=== PATIENT | male | born 1945 | race Caucasian/White ===

== ENCOUNTER → 2017-03-19 | Outpatient (CLI) | payer MEDICARE ==
[~2017-03-19] MED LIST: CEPH500C PO; OXYC-109 PO
--- NOTE | 2017-03-19 12:24 | Diagnostic Imaging Report ---
Left breast ultrasound. INDICATION: Pain and lump in the left retroareolar region. FINDINGS: The four quadrants and retroareolar region of the left breast is evaluated with comparison with the right breast. There is hypoechoic lesion seen in the retroareolar region on the left side. This may relate to gynecomastia. There is internal vascularity seen. The area of abnormality is 3.0 x 0.8 x 2.3 cm. No other abnormality seen. IMPRESSION: A 3-cm retroareolar hypoechoic lesion in the left breast is favored to be related to gynecomastia. Correlate clinically. If symptoms persist or worsen, then followup ultrasound and evaluation with mammography is recommended. ACR BI-RADS Category 3: Probably benign findings. Result letter will be mailed to the patient. Note: At least 10% of breast cancer is not imaged by mammography. Dictated by: Dictated on workstation # [id number]
== END ==
LOC: RAD 08:39
PROVIDERS: ATTEND Nurse Practitioner Family
DX: N64.4 Mastodynia (principal)
CPT/HCPCS: 76641

== ENCOUNTER → 2018-09-24 | Outpatient (CLI) | payer MEDICARE ==
[2018-09-24 14:08] LABS: CREATINE KINASE MB 1.1 NG/ML (<6.6); MYOGLOBIN SERUM 39.9 NG/ML (10.0-92.0)
== END ==
LOC: CARD 13:25
PROVIDERS: ATTEND Family Medicine
DX: R07.89 Other chest pain (principal)
CPT/HCPCS: 36415; 82553; 83874; 84484; 93005

== ENCOUNTER → 2018-09-26 | Outpatient (CLI) | payer MEDICARE ==
[~2018-09-26] VITALS: Ht 167.6 cm; Wt 69.9 kg
[~2018-09-26] MED LIST changes: +CATHETER FLUSH 10 ML SYR IV PRN
== END ==
LOC: CARD 07:19
PROVIDERS: ATTEND Internal Medicine Cardiovascular Disease
DX: R07.89 Other chest pain (principal)
CPT/HCPCS: 78452; 93017

== ENCOUNTER 2020-04-14 10:49 | Outpatient (CLI) | payer MEDICARE ==
[~2020-04-14] VITALS: Ht 167 cm; Wt 68.1 kg
[~2020-04-14 10:49] MED LIST changes: -CATHETER FLUSH 10 ML SYR IV PRN
[2020-04-14] MEDS ORDERED: AMIT10TA6 PO (13:37)
== END 2020-04-14 13:41 ==
LOC: PREOP 10:49
PROVIDERS: ATTEND Surgery
DX: Z01.818 Encounter for other preprocedural examination (principal)

== ENCOUNTER 2020-04-20 09:01 | Day surgery (SDC) | payer MEDICARE ==
[2020-04-20] VITALS (15 sets, daily range): BP systolic 86–169; BP diastolic 53–84
[~2020-04-20] VITALS: Ht 167 cm; Wt 68.1 kg
[~2020-04-20 09:01] MED LIST changes: +AMIT10TA6 PO
[2020-04-20] MEDS ORDERED: NS IV 500 ML 500 ML ONE (09:13)
[2020-04-20] MEDS ORDERED: NS IV 500 ML 500 ML IV PRN (09:13)
[2020-04-20] MEDS ORDERED: fentaNYL INJECTION 100 MCG/2 ML AMP IVP ONE (09:15)
[2020-04-20] MEDS ORDERED: LIDOCAINE JELLY 2% 6 ML SYRINGE MM PRN (09:15)
--- NOTE | 2020-04-20 09:42 | Conscious Sedation/ASA ---
Conscious Sedation Pre-Proced Time 09:30 ASA Score 2 For ASA 3 and 4: Consider anesthesia and medical clearance. Also, for patients with a history of failed moderate sedation consider anesthesia. Airway Lungs Heart ASA score ASA 1: a normal healthy patient ASA 2: a patient with a mild systemic disease (mid diabetes, controlled hypertension, obesity ASA 3: a patient with a severe systemic disease that limits activity (angina, COPD, prior Myocardial infarction) ASA 4: a patient with an incapacitating disease that is a constant threat to life (CHF, renal failure) ASA 5: a moribund patient not expected to survive 24 hrs. (ruptured aneurysm) ASA 6: a declared brain- patient whose organs are being harvested. For emergent operations, add the letter E after the classification Mallampati Classification Grade 2 Sedation Plan Analgesia, Amnesia, Plan communicated to team members, Discussed options with patient/fam, Discussed risks with patient/fam The patient is an appropriate candidate to undergo the planned procedure, sedation, and anesthesia. The patient immediately re-assessed prior to indication. SHOAIB STRAUSS MD Apr 20, 2020 09:42
--- NOTE | 2020-04-20 09:43 | Progress Note-Pre Operative ---
Pre-Operative Progress Note H&P Reviewed The H&P was reviewed, patient examined and no changes noted. Date Seen by Provider: Apr 20, 2020 Time Seen by Provider: : Date H&P Reviewed: Apr 20, 2020 Time H&P Reviewed: :30 Pre-Operative Diagnosis: screening colonoscopy SHOAIB STRAUSS MD Apr 20, 2020 09:43
[2020-04-20] MEDS ORDERED: ACETAMINOPHEN 325 MG TABLET PO PRN (09:45)
[2020-04-20] MEDS ORDERED: HYDROcodone/APAP 5 MG/325 MG (LORTAB) TAB PO PRN (09:45)
[2020-04-20] MEDS ORDERED: ONDANSETRON 4 MG/2 ML (SDV) Z0FRAN IVP PRN (09:45)
[2020-04-20] MEDS ORDERED: morphine INJ 10 MG/ML 1ML (SYR OR VIAL) IVP PRN ×2 (09:45)
--- NOTE | 2020-04-20 09:45 | Discharge Inst-Surgical ---
D/C Lap Instructions-RICA Follow Up Activity as tolerated High Fiber Diet 25g or more per day Avoid Alcohol, Caffeine, Spicy [place] and Acid foods. Drink 64 fluid oz or more of fluids per day. Symptoms to Report: Fever over 101 degree F, Nausea/Vomiting If any problems/questions: Contact your physician or go to Emergency Room SHOAIB STRAUSS MD Apr 20, 2020 09:44
[2020-04-20] MEDS ORDERED: fentaNYL INJECTION 100 MCG/2 ML AMP ONE (09:47)
[2020-04-20] MEDS ORDERED: MIDAZOLAM 5 MG/5 ML (VERSED) VIAL ONE (09:47)
[2020-04-20] MEDS ORDERED: LIDOCAINE JELLY 2% 6 ML SYRINGE ONE (09:47)
[2020-04-20] MEDS: MIDAZOLAM 5 MG/5 ML (VERSED) VIAL IV PRN ×3 (10:35→10:48)
--- NOTE | 2020-04-20 11:18 | Progress Note-Post Operative ---
Post-Operative Progess Note Surgeon (s)/Shrimp Packer (s) Surgeon SHOAIB STRAUSS MD Shrimp Packer: none Pre-Operative Diagnosis screening colonoscopy Post-Operative Diagnosis moderate sigmoid diverticulosis. Procedure & Operative Findings Date of Procedure 04/20/20 Procedure Performed/Findings colonoscopy Anesthesia Type cs Estimated Blood Loss Estimated blood loss (mL): minimal Specimens/Packing Specimens Removed none SHOAIB STRAUSS MD Apr 20, 2020 11:18
--- NOTE | 2020-04-20 13:14 | OPERATIVE REPORT ---
DATE OF SERVICE: 04/20/2020 ATTENDING PRIMARY CARE PHYSICIAN: Cynthia Enriquez MD PREOPERATIVE DIAGNOSIS: Screening colonoscopy. POSTOPERATIVE DIAGNOSIS: Moderate sigmoid diverticulosis. PROCEDURE: Colonoscopy. SURGEON: Sohaib Strauss MD. ANESTHESIA: Conscious sedation. ESTIMATED BLOOD LOSS: Minimal. FINDINGS: Moderate sigmoid diverticulosis. DISPOSITION: The patient tolerated the procedure well. INDICATIONS: The patient is a 74-year-old male known to us. He was referred over to us for screening colonoscopy. He reports that his last colonoscopy was approximately 20 years ago; however, believes this to be normal. He states that he is otherwise doing well, does not have any major issues with diarrhea nor constipation as well as no red blood per rectum nor any dark tarry stools. He also does not report any family history of colon cancer. DESCRIPTION OF PROCEDURE: The patient was brought to the endoscopy suite, laid in left lateral decubitus position. After adequate IV pain and sedative medications and conscious sedation anesthesia, digital rectal examination was performed. No significant hemorrhoids identified. Normal sphincter tone was felt and there were no palpable masses. Prostate gland was palpable and appeared normal. The endoscope was then intubated to the anus and rectum gently insufflated. The endoscope was then advanced to the valves of Gerber of the rectum with no polyps or any neoplasms identified. The endoscope was then advanced through the sigmoid colon where a moderate sigmoid diverticulosis identified. There were no mucosal inflammatory changes to indicate any active diverticulitis. The endoscope was then advanced to the remainder of the descending, transverse and ascending colon to the cecum. These segments were normal. There were no polyps or any neoplasms identified throughout the colon or rectum. The endoscope was then slowly withdrawn while taking a second look and suctioning of residual air with no additional findings. The patient tolerated the procedure well. We will recommend medical management with a high fiber diet with at least 30 grams of fiber daily as well as significant amounts of water to promote soft stools on a daily basis. If he is asymptomatic, he does not need another colonoscopy for another 10 years. Job ID: [id number] DocumentID: [id number] Dictated Date: 04/20/2020 11:10:55 Hand Shoes Sewer Date: 04/20/2020 13:14:15 Dictated By: SHOAIB STRAUSS MD
== END 2020-04-20 12:10 | disposition home or self-care (01) ==
LOC: ENDO 09:01
PROVIDERS: ATTEND Surgery
DX: Z12.11 Encounter for screening for malignant neoplasm of colon (principal); K57.30 Diverticulosis of large intestine without perforation or abscess without bleeding; G47.00 Insomnia, unspecified; Z79.899 Other long term (current) drug therapy